=== PATIENT | male | born 2000 | race Caucasian/White ===

== ENCOUNTER 2023-01-03 09:24 | Inpatient (IN) | payer OTHER, BC ==
[2023-01-03] MEDS ORDERED: fentaNYL 50 mcg/mL 1 mL Vial ONE (09:29)
[2023-01-03] MEDS ORDERED: Ondansetron PF 4 MG/2 ML Vial ONE ×2 (09:29→14:39)
[2023-01-03] MEDS ORDERED: Boostrix 0.5 ML (Tdap) VIAL (>/=7 yrs of age) ONE (09:29)
[2023-01-03 09:54] LABS: Hematocrit 51.8 % (42.0-52.0); Hemoglobin 17.3 g/dL (14.0-18.0); Mean Corpuscular HGB CONC 33.4 g/dL (32.0-36.0); Mean Corpuscular Hemoglobin 31.1 pg (27.0-31.0); Mean Platelet Volume 10.4 fL (7.4-10.4); Platelet Count 258 10x3/uL (130-400); RBC Distribution Width 12.8 % (11.5-14.5); Red Blood Cell (RBC) Count 5.57 mill/uL (4.70-6.10); White Blood Cell (WBC) Count 26.3 10x3/uL (4.8-10.8)
[2023-01-03 10:02] LABS: Delete Auto Diff?? YES; Manual Diff?? YES
[2023-01-03 10:15] LABS: ALT (SGPT) 18 U/L (8-55); AST (SGOT) 35 U/L (5-34); Albumin 4.4 g/dL (3.5-5.0); Alkaline Phosphatase 65 U/L (40-110); Anion Gap 18 mmol/L (10-20); BUN (Urea Nitrogen) 12 mg/dL (8.9-20.6); Bilirubin, Total 0.6 mg/dL (0.2-1.2); Calc. Creatinine Clearance 0 mL/min (70-130); Calcium 9.2 mg/dL (7.8-10.44); Carbon Dioxide 19 mmol/L (22-29); Chloride 108 mmol/L (98-107); Estimated GFR 105; Globulin 2.5 g/dL (2.4-3.5); Glucose 201 mg/dL (70-105); Protein, Total 6.9 g/dL (6.0-8.3); Sodium 142 mmol/L (136-145)
[2023-01-03] MEDS ORDERED: TETANUS, DIPHTHERIA TOX,ADULT (TDVAX) 0.5 ML VIAL IM ONE ×2 (10:42→13:06)
[2023-01-03] MEDS ORDERED: Morphine 2 MG/ML VIAL SLOW IVP PRN (10:42)
[2023-01-03 10:43] LABS: Band 6 % (5-11); Lymphocytes 3 % (21-51); Metamyelocyte 1 % (0-0); Monocytes 3 % (0-10); Neutrophil 86 % (42-75)
[2023-01-03 10:44] LABS: Anisocytosis SLIGHT = 6-15 cells (100X) (0-5/hpf); Ovalocytes SLIGHT = 2-5 cells (100X) (0-1/hpf)
[2023-01-03 10:46] LABS: Platelet Adequacy Comment Platelets Normal
[2023-01-03] MEDS ORDERED: Morphine 2 MG/ML VIAL ONE (11:42)
[2023-01-03 11:47] VITALS: BMI 22.4
[2023-01-03] MEDS ORDERED: Acetaminophen 325 MG TAB ONE (13:21)
[2023-01-03] MEDS ORDERED: traMADol HCl 50 MG TAB ONE ×2 (13:22→13:24)
[2023-01-03] MEDS: Acetaminophen 325 MG TAB PO SCH ×2 (13:31→17:58)
[2023-01-03] MEDS: traMADol HCl 50 MG TAB PO PRN ×2 (13:32→21:24)
[2023-01-03] MEDS: Sodium Chloride 0.9% 1,000 ML IV SCH (14:01)
[2023-01-03] MEDS ORDERED: Ketamine In 0.9 % NaCl 50 MG/5 ML SYRINGE ONE (14:36)
[2023-01-03 14:39] LABS: SARS-CoV-2 NAA Rapid Test Not Detected (NotDetected)
[2023-01-04] MEDS: Sodium Chloride 0.9% 1,000 ML IV SCH ×4 (00:11→17:00)
[2023-01-04] MEDS: Acetaminophen 325 MG TAB PO SCH ×2 (00:25→06:31)
[2023-01-04] MEDS ORDERED: Polyethylene Glycol 3350 17 GM Packet PO PRN (08:44)
[2023-01-04] MEDS ORDERED: Senokot 8.6 MG TAB PO PRN (08:44)
[2023-01-04] MEDS ORDERED: Rib Fracture Protocol PO PRN (08:45)
[2023-01-04] MEDS ORDERED: Cyclobenzaprine 10 MG TAB PO PRN (08:49)
[2023-01-04] MEDS ORDERED: Phenol 177 ML BOT PO PRN (08:55)
[2023-01-04] MEDS: Gabapentin 300 MG CAP PO SCH ×3 (09:14→21:10)
[2023-01-04] MEDS: Acetaminophen 500 MG TAB PO SCH ×3 (11:00→23:56)
[2023-01-04] MEDS: traMADol HCl 50 MG TAB PO SCH ×2 (11:00→17:16)
[2023-01-04] MEDS: Ondansetron ODT 4 MG TAB SL PRN (13:16)
[2023-01-04] MEDS: Ipratropium/Albuterol 3 ML NEB NEB SCH ×2 (13:23→18:58)
[2023-01-04] MEDS: Ibuprofen 200 MG TAB PO SCH ×2 (14:22→21:11)
[2023-01-04] MEDS: traMADol HCl 50 MG TAB PO PRN (23:57)
[2023-01-05] MEDS: Ipratropium/Albuterol 3 ML NEB NEB SCH ×4 (00:39→18:58)
[2023-01-05] MEDS: Sodium Chloride 0.9% 1,000 ML IV SCH ×4 (01:10→18:58)
[2023-01-05] MEDS: traMADol HCl 50 MG TAB PO SCH ×5 (05:42→23:07)
[2023-01-05] MEDS: Ibuprofen 200 MG TAB PO SCH ×3 (05:43→21:39)
[2023-01-05] MEDS: Acetaminophen 500 MG TAB PO SCH ×4 (05:44→23:08)
[2023-01-05] MEDS: Gabapentin 300 MG CAP PO SCH (08:45)
[2023-01-05 09:19] LABS: #Monocytes 0.5 thou/uL (0.11-0.59); #Neutrophils 7.1 thou/uL (1.40-6.50); %Basophils 0.4 % (0.0-1.0); %Eosinophils 0.5 % (0.0-10.0); %Monocytes 5.4 % (0.0-10.0); %Neutrophils 85.5 % (42.0-75.0); Hematocrit 32.6 % (42.0-52.0); Hemoglobin 10.8 g/dL (14.0-18.0); Mean Corpuscular HGB CONC 33.1 g/dL (32.0-36.0); Mean Corpuscular Hemoglobin 30.9 pg (27.0-31.0); Mean Corpuscular Volume 93.1 fl (78.0-98.0); Mean Platelet Volume 10.8 fL (7.4-10.4); Platelet Count 138 10x3/uL (130-400); White Blood Cell (WBC) Count 8.3 10x3/uL (4.8-10.8)
[2023-01-05] MEDS: Ondansetron ODT 4 MG TAB SL PRN (10:39)
[2023-01-05] MEDS ORDERED: Gabapentin 300 MG CAP PO SCH (11:01)
[2023-01-05] MEDS: Gabapentin 100 MG CAP PO SCH ×2 (16:06→21:39)
[2023-01-06] MEDS: Ipratropium/Albuterol 3 ML NEB NEB SCH ×4 (02:51→18:33)
[2023-01-06] MEDS: Ibuprofen 200 MG TAB PO SCH ×3 (05:48→21:29)
[2023-01-06] MEDS: traMADol HCl 50 MG TAB PO SCH ×4 (05:48→23:48)
[2023-01-06] MEDS: Acetaminophen 500 MG TAB PO SCH ×4 (05:49→23:47)
[2023-01-06] MEDS: Gabapentin 100 MG CAP PO SCH ×3 (09:06→21:28)
[2023-01-06] MEDS: Sodium Chloride 0.9% 1,000 ML IV SCH (09:47)
[2023-01-06] MEDS: Ondansetron ODT 4 MG TAB SL PRN (11:03)
[2023-01-06] MEDS ORDERED: Scopolamine 1 mg/72 hour Patch TD SCH (13:00)
[2023-01-07] MEDS: Ipratropium/Albuterol 3 ML NEB NEB SCH ×3 (00:39→14:11)
[2023-01-07] MEDS: traMADol HCl 50 MG TAB PO SCH (07:28)
[2023-01-07] MEDS: Acetaminophen 500 MG TAB PO SCH ×4 (07:29→22:08)
[2023-01-07] MEDS: Ibuprofen 200 MG TAB PO SCH ×3 (07:30→22:07)
[2023-01-07] MEDS: Gabapentin 100 MG CAP PO SCH (08:45)
[2023-01-07] MEDS: Ondansetron ODT 4 MG TAB SL PRN (13:12)
[2023-01-07] MEDS ORDERED: Ipratropium/Albuterol 3 ML NEB NEB PRN (14:23)
[2023-01-08] MEDS: Ibuprofen 200 MG TAB PO SCH (06:19)
[2023-01-08] MEDS: Acetaminophen 500 MG TAB PO SCH (06:20)
[2023-01-08 08:39] VITALS: BP 127/70; TEMP 98.6
== END 2023-01-08 09:51 | disposition home or self-care (01) | DRG 562 ==
LOC: ERS 09:24 → ERHOLD 10:50 → IMCU/EMU 17:33 → SURG B 01-04 22:04
PROVIDERS: ADMIT Surgery; ATTEND Surgery
PROC: 5A09357 Assistance with Respiratory Ventilation, Less than 24 Consecutive Hours, Continuous Positive Airway Pressure (ICD-10-PCS; principal; 2023-01-03)
PROC: 0PSDXZZ Reposition Left Humeral Head, External Approach (ICD-10-PCS; 2023-01-03)
DX: S42.252A Displaced fracture of greater tuberosity of left humerus, initial encounter for closed fracture (principal); J81.0 Acute pulmonary edema; J96.01 Acute respiratory failure with hypoxia; S27.329A Contusion of lung, unspecified, initial encounter; S22.048A Other fracture of fourth thoracic vertebra, initial encounter for closed fracture; S22.058A Other fracture of T5-T6 vertebra, initial encounter for closed fracture; F90.9 Attention-deficit hyperactivity disorder, unspecified type; Z79.899 Other long term (current) drug therapy; V29.99XA Rider (driver) (passenger) of other motorcycle injured in unspecified traffic accident, initial encounter; Z11.52 Encounter for screening for COVID-19
CPT/HCPCS: 36415; 70450; 70486; 71045; 71260; 72125; 74177; 80053; 85025; 86850; 86900; 86901; 90715; 94640; 94660; 94799; G0390; J1650; J2272; J2405; J3010; J3490; J7050; J7620; Q0162